=== PATIENT | female | born 1960 | race Caucasian/White ===

== ENCOUNTER → 2016-07-04 | Outpatient (CLI) | payer MEDICARE, MEDICAID ==
[~2016-07-04] MED LIST: ARIP2TAB9 PO; ESCI10TA PO; FAMO-119 PO; LEVO100T PO; LRT10T PO; METF500T4 PO; SMV20T PO; TRIA1TAB3 PO
== END ==
LOC: LAB 07:59
PROVIDERS: ATTEND Family Medicine
DX: E11.9 Type 2 diabetes mellitus without complications (principal); E03.9 Hypothyroidism, unspecified
CPT/HCPCS: 36415; 82043; 82570; 84439; 84443